=== PATIENT | female | born 1995 | race African-American/Black ===

== ENCOUNTER 2024-01-09 10:50 | Emergency (ER) | payer OTHER, SELFPAY ==
--- NOTE | ~2024-01-09 | US_ITS ---
US OB <= 14 weeks fetus DATE: 01/09/2024 11:46 INDICATION: Abdominal pain, vaginal bleeding TECHNIQUE: Real-time imaging and Doppler analysis COMPARISON: None FINDINGS: The uterus measures 12.3 cm sagittal, 8 cm AP and 8.9 cm transverse dimension. There is a single live intrauterine gestation. heart rate 169 bpm. There is a small retroplacental fluid collection anterosuperiorly on the right, approximately 10 x 16 mm on axial view. [place]-rump length measures 3.1 cm consistent with estimated gestational age of 10 weeks 5 days +/- 1 week, with ABHISHEK of 08/01/2024. Right ovary measures 3.6 x 1.8 x 4.6 cm. Left ovary measures 3.7 x 2 x 3.2 cm. IMPRESSION: Small right anterolateral abruption Estimated gestational age is 10 weeks 5 days plus or minus one week; ABHISHEK: 08/01/2024 Reviewed, dictated and finalized at [facility]. Reviewed, dictated and finalized at [facility]. IMPRESSION: Small right anterolateral abruption Estimated gestational age is 10 weeks 5 days plus or minus one week; ABHISHEK: 2024
[2024-01-09 10:55] VITALS: TEMP 36.7
[2024-01-09 11:00] VITALS: BP 109/62; PULSE 106; RESP 16; O2SAT 100
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
[2024-01-09 11:32] LABS: Basophils Percent Auto 0.2 % (0.2-1.2); Eosinophils Percent Auto 0.1 % (0-4.4); Hematocrit 29.8 % (37.0-47.0); Hemoglobin 10.3 g/dL (12.0-15.0); Immature Granulocyte Absolute 0.05 K/mm3 (0.00-0.031); Immature Granulocyte Percent A 0.4 % (0-0.5); Lymphocytes Absolute Auto 2.39 K/mm3 (0.9-3.2); Lymphocytes Percent Auto 20.8 % (18.3-44.2); Mean Corpuscular HGB Conc 34.6 g/dl (32-36); Mean Corpuscular Hemoglobin 31.5 pg (26-34); Mean Corpuscular Volume 91.1 fl (80-100); Mean Platelet Volume 9.4 fl (7.4-10.4); Monocytes Absolute Auto 0.6 K/mm3 (0.1-0.6); Monocytes Percent Auto 5.5 % (2.6-8.5); Neutrophils Absolute Auto 8.4 K/mm3 (1.3-6.7); Platelet Count Result 304 k/mm3 (150-375); Red Blood Count 3.27 M/mm3 (4.2-5.4); Red Cell Distribution Width 12.7 % (11.5-14.5); White Blood Count 11.5 K/mm3 (4.5-10.0)
[2024-01-09 11:36] LABS: Add Urine Microscopic? YES; Appearance Urine Clear (Clear); Bacteria Urine Rare /hpf; Bilirubin Urine Negative (Negative); Blood Urine 2+ (Negative); Color Urine Yellow (Yellow); Glucose Urine UA Negative (Negative); Ketones Urine Negative (Negative); Leukocyte Esterase Ur Negative LEU/UL (Negative); Nitrate Urine Negative (Negative); Non Pathogenic Casts 0-2; Protein Urine Trace mg/dL (Negative); RBC Urine 51-100 /hpf (0-2); Specific Grav Ur 1.021 (1.001-1.035); Squamous Epithelial Cell Urine Few /hpf (Few); Urobilinogen Urine 0.2 mg/dL (<2.0); WBC Urine 0-5 /hpf (0-3)
[2024-01-09 13:07] VITALS: BP 124/68; PULSE 90; RESP 16; O2SAT 98
== END 2024-01-09 13:07 | disposition home or self-care (01) ==
PROVIDERS: Emergency Provider General Practice
DX: O46.8X1 Other antepartum hemorrhage, first trimester (principal); Z3A.10 10 weeks gestation of pregnancy
CPT/HCPCS: 36415; 76801; 81001; 84702; 85025; 85461; 86850; 86900; 86901; 99284